=== PATIENT | female | born 1995 | race African-American/Black ===

== ENCOUNTER 2017-02-12 16:47 | Emergency (ER) | payer OTHER ==
--- NOTE | 2017-02-12 17:17 | PDOC ---
History of Present Illness - General Chief Complaint: Pain Stated Complaint: PAIN Time Seen by Provider: 02/12/17 17:17 - History of Present Illness Initial Comments: 21 year old 16 weeks (LMP 10/10/16) [id number] female presenting with non-bloody diarrhea for the past three days. Her young son had diarrhea one week ago but she was told it was because he started teething. 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 She had a ultrasound scheduled two weeks ago but was not able to make it because her young son as sick. She endorses some chills, occasional warmth, and vomiting ( chronic vomiting typical during her pregnancies). Does not endorse measured fevers, chest pain, cough, shortness of breath, diaphoresis, or any other symptoms. 02/12/17 17:57 Past History - Past Medical History Allergies/Adverse Reactions: Allergies Allergy/AdvReac Type Severity Reaction Status Date / Time No Known Allergies Allergy Verified 02/12/17 17:02 Home Medications: Ambulatory Orders Cephalexin [Keflex] 500 mg PO BID #13 capsule 02/12/17 Iron 0 mg PO DAILY 02/12/17 Vit Calc,Iron,Folic [ Vitamins] 1 each PO DAILY 02/12/17 - Psycho/Social/Smoking Cessation Hx Anxiety: No Suicidal Ideation: No Smoking History: Former smoker Have you smoked in the past 12 months: No Number of Cigarettes Smoked Daily: 0 Hx Alcohol Use: No Drug/Substance Use Hx: Yes Substance Use Type: Marijuana Review of Systems - Review of Systems Constitutional: Yes: Chills. No: Diaphoresis, Fever, Night Sweats HEENTM: No: Recent change in vision Respiratory: No: Cough, Shortness of Breath Cardiac (ROS): No: Chest Pain, Edema, Irregular Heart Rate ABD/GI: Yes: Diarrhea, Nausea, Poor Appetite, Vomiting : Yes: Burning, Dysuria, Pain. No: Frequency, Incontinence, Urgency Neurological: No: Headache, Paresthesia *Physical Exam - Physical Exam General Appearance: Yes: Nourished, Appropriately Dressed. No: Apparent Distress HEENT: positive: EOMI, RADHA, Normal ENT Inspection, Normal Voice, Other (Mucous membranes moist) Neck: positive: Trachea midline, Normal Thyroid, Supple. negative: Tender, Rigid Respiratory/Chest: positive: Lungs Clear, Normal Breath Sounds. negative: Chest Tender, Respiratory Distress, Accessory Muscle Use Cardiovascular: positive: Regular Rhythm, Regular Rate, Edema. negative: S1, S2 , Murmur Female Pelvic Exam: positive: normal external exam, cervical os closed Gastrointestinal/Abdominal: positive: Normal Bowel Sounds, Flat, Soft, Protuberent, Distended. negative: Tender, Organomegaly Musculoskeletal: positive: Normal Inspection. negative: CVA Tenderness Integumentary: positive: Normal Color, Dry, Warm. negative: Cyanotic, Erythema Neurologic: positive: Fully Oriented, Alert, Normal Mood/Affect, Normal Response ED Treatment Course - LABORATORY CBC & Chemistry Diagram: 02/12/17 17:55 02/12/17 17:55 Medical Decision Making - Medical Decision Making 21 year old 16 week female presenting with diarrhea, rectal temp of 100.4 and chills. Also complaining of dysuria and vaginal itching. THis is most likely a viral enteritis with a secondary urinary infection. 02/12/17 18:30 Bedisde US revealed a viable fetus with ample amniotic fluid and a heart rate of 169. 02/12/17 20:07 Patient given 500 G keflex for UTI + nitrites and WBC of 13.9 with left shift. Also, given 650 tylenol for pain. Will receive an additional 13 doses outpatient. 02/12/17 20:37 Pelvic exam significant for white thick discharge that was malodorous so will give Flagyl 2 GM PO for trichomanas suspicion. Informed her that her partner must be treated as well and repeated abdominal exam without findings of tenderness. She was tolerating PO by discharge. *DC/Admit/Observation/Transfer Diagnosis at time of Disposition: UTI (urinary tract infection), Trichomonas infection - Discharge Dispostion Disposition: HOME Condition at time of disposition: Improved Admit: No - Prescriptions Prescriptions: Cephalexin [Keflex] 500 mg PO BID #13 capsule - Referrals Referrals: Eliane Garrison MD [Primary Care Provider] - - Patient Instructions Additional Instructions: You were seen for diarrhea, nausea, and generally feeling poor. We found that you have an infection in your urine and also in your vagina. We gave you antibiotics here and also a prescription to take at home for the next 7 days. Please have your sexual partner follow up with his primary care physician to also receive treatment. We saw a fetus with a heart beat in your uterus and would like you to follow up for an official ultrasound with your console assembler. Please return if you have worsening fevers, chills, nausea, vomiting, or diarrhea despite taking the medications. - Attestations Physician Attestion: Attested by Dr. Allen 02/12/17 20:40
[2017-02-12 17:29] VITALS: BP 107/52; PULSE 75; BMI 24.0
[2017-02-12] MEDS ORDERED: SODIUM CHLORIDE 0.9% 1000 ML INFUS.BAG IV ONE (17:52)
[2017-02-12 18:10] VITALS: TEMP 100.4
[2017-02-12 18:12] LABS: BASOPHIL 0.4 % (0-2.0); EOSINOPHIL 0.2 % (0-4.5); MCH 25.7 pg (25.7-33.7); MCHC 32.8 g/dl (32.0-36.0); MEAN CELL VOLUME 78.3 fl (80-96); NEUTROPHILS 89.5 % (42.8-82.8); PLATELET COUNT 216 K/MM3 (134-434); RDW 16.8 % (11.6-15.6); WHITE BLOOD COUNT 13.9 K/mm3 (4.0-10.0)
[2017-02-12 18:17] LABS: URINE APPEARANCE CLOUDY; URINE BILIRUBIN NEGATIVE (NEGATIVE); URINE BLOOD 1+ (NEGATIVE); URINE COLOR DKYELLOW; URINE GLUCOSE (UA) NEGATIVE (NEGATIVE); URINE KETONE NEGATIVE (NEGATIVE); URINE NITRITE NEGATIVE (NEGATIVE); URINE UROBILINOGEN NEGATIVE mg/dL (0.2-1.0)
[2017-02-12 18:33] LABS: URINE LEUK ESTERASE 3+ (NEGATIVE); URINE PROTEIN 1+ (NEGATIVE)
[2017-02-12 18:37] LABS: URINE MUCUS RARE; URINE RBC 5 /hpf (0-3); URINE WBC 13 /hpf (3-5)
[2017-02-12 18:46] LABS: ALBUMIN 2.8 g/dl (3.4-5.0); ANION GAP 9 (8-16); CALCIUM 8.3 mg/dL (8.5-10.1); CO2 22 mmol/L (21-32); CREATININE 0.6 mg/dL (0.55-1.02); GLUCOSE,RANDOM 69 mg/dL (74-106); MAGNESIUM 1.6 mg/dL (1.8-2.4); SGPT/ALT 15 U/L (12-78)
[2017-02-12 18:56] LABS: ALK PHOS 69 U/L (45-117); BILIRUBIN,TOTAL 0.3 mg/dL (0.2-1.0); SGOT/AST 12 U/L (15-37); TOT PROT 6.4 g/dl (6.4-8.2)
[2017-02-12] MEDS ORDERED: MAGNESIUM SULF 50% (8.12 MEQ/2 ML-1 GM VIAL) IVPB ONE (19:07)
[2017-02-12] MEDS ORDERED: MAGNESIUM SULF 50% (8.12 MEQ/2 ML-1 GM VIAL) ONE (19:08)
[2017-02-12] MEDS ORDERED: ACETAMINOPHEN 325 MG TABLET (FP) PO ONE (19:51)
[2017-02-12] MEDS ORDERED: ACETAMINOPHEN 325 MG TABLET (FP) ONE (19:53)
[2017-02-12] MEDS ORDERED: CEPHALEXIN MONOHYDRATE 500 MG CAPSULE (UD) PO ONE (19:53)
[2017-02-12] MEDS ORDERED: CEPHALEXIN MONOHYDRATE 250 MG CAPSULE (FP) ONE (19:55)
[2017-02-12] MEDS ORDERED: metroNIDAZOLE 250 MG TABLET PO ONE (20:30)
--- NOTE | 2017-02-12 22:23 | PDOC ---
Attending Attestation - Resident Resident Name: Erika Cifuentes - ED Attending Attestation I have performed the following: I have examined & evaluated the patient, The case was reviewed & discussed with the resident, I agree w/resident's findings & plan, Exceptions are as noted - HPI HPI: 02/12/17 22:20 21-year-old female, 4 para 1, at 16 weeks gestation by dates presents to the ER with several episodes of loose watery stools and nausea associated with several episodes of nonbloody nonbilious vomiting. - Physicial Exam PE: 02/12/17 22:21 Patient is awake and alert, with a low-grade fever, hemodynamically stable. HEENT: Within normal limits; mucous membranes are dry; there is no scleral icterus; CTA RRR Serial abdominal exams reveal no focal tenderness; gravid uterus is palpable 5 cm below the umbilicus; there is no CVA tenderness bilaterally; There is no petechial rash; Gait is stable; A no 3; moving all tremors symmetrically; - Medical Decision Making 02/12/17 22:22 Patient is a 21-year-old female, 4 para 1 at 16 weeks gestation who presents to the ER with symptoms consistent with acute gastroenteritis. I do not suspect acute appendicitis or cholecystitis at this time. Urinalysis is consistent with pyuria. Pelvic exam was consistent with BV/Trichomonas. We'll administer Flagyl and prescribed Keflex by mouth for outpatient treatment of UTI. Bedside ultrasound reveals an IUP with FH of 173. After patient was able tolerate by mouth and was noted to be symptom-free, she was discharged with outpatient [employer]IST[employer] follow-up.
== END 2017-02-12 21:23 | disposition home or self-care (01) ==
LOC: JER 16:47
PROC: 3E033GC Introduction of Other Therapeutic Substance into Peripheral Vein, Percutaneous Approach (ICD-10-PCS; principal; 2017-02-12)
DX: O26.892 Other specified pregnancy related conditions, second trimester (principal); O98.812 Other maternal infectious and parasitic diseases complicating pregnancy, second trimester; O23.42 Unspecified infection of urinary tract in pregnancy, second trimester; O98.312 Other infections with a predominantly sexual mode of transmission complicating pregnancy, second trimester; A59.01 Trichomonal vulvovaginitis; Z3A.16 16 weeks gestation of pregnancy
CPT/HCPCS: 36415; 80053; 81003; 81015; 83735; 85025; 87040; 87086; 99284-25